=== PATIENT | female | born 1945 | race African-American/Black ===

== ENCOUNTER → 2018-04-11 | Outpatient (CLI) | payer OTHER ==
[~2018-04-11] VITALS: Ht 162.6 cm; Wt 86.6 kg
[~2018-04-11] MED LIST: ADVAIR 100-501 EACH; ALEVE220 M1 PO; ALEVE220 MG PO; ASPIRIN81 M2 PO; B-100 COMPLEX1 EAC1 PO; BIOTIN5 M1 PO; BIOTIN5 MG PO; CALCIUM-MAGNES1 EAC9 PO; CIPRO500 MG PO; FLOMAX0.4 MG PO; FLONASE 0.05%50 MCG; HAIR SKIN NAIL1 EACH PO; MAGOX 400400 MG PO; MULTIVITAMINS1 EAC7; NEXIUM 40 MG CA40 M1 PO; NORCO 5-325 TA1 EACH PO; ONDANSETRON HCL4 M2 PO; PROAIR HFA8.5 GM; RED YEAST RICE600 MG PO; TUMS200 MG PO; VITAMIN A10000 UNI3 PO; VITAMIN B-12100 MC1 PO; VITAMIN B-12500 MCG PO; VITAMIN C500 M1 PO; VITAMIN D-32000 UNIT PO; VITAMIN D1000 UNI1 PO; VITAMINC500 PO
--- NOTE | ~2018-04-11 | P ---
[facility] [place] [address] PROCEDURE REPORT Name: NGUYEN ELLIOTT Room #: [facility] Nadya.#: [id number] Admission: 04/11/18 Attend Phys: Gera Samuels MD Discharge: Date of : 49 Report #: [id number] THIS REPORT FOR: //name// CC: Gera Chavez BRIEF HISTORY: The patient is a 72-year-old woman with a history of colon polyps. PREOPERATIVE DIAGNOSIS: High risk screening colonoscopy due to history of colon polyps. POSTOPERATIVE DIAGNOSIS: Diminutive rectal polyp. MEDICATIONS: Deep sedation with propofol per anesthesia. SPECIMEN: Rectal polyp. ESTIMATED BLOOD LOSS: 3 mL. PROCEDURE: Colonoscopy to the cecum and terminal ileum with biopsy. FINDINGS: Prior to propofol sedation, the procedure of colonoscopy discussed with the patient as well as potential risks and its complications. She indicates she understands and desires to proceed. With the patient in the left lateral decubitus position, digital examination was completed which revealed no abnormalities. Subsequently, [employer] video colonoscope was introduced in the rectum and advanced under direct vision to the cecum. Done with minimal difficulty. The cecum was identified by the ileocecal valve and the appendiceal orifice. I was able to visualize the distal segment of the terminal ileum, which was inspected and noted to be unremarkable. At that point, the scope was withdrawn and careful circumferential views were obtained including retroflexion of the scope in the ascending colon. Upon slow withdrawal of the scope, the prep was excellent. Mucosa was within normal limits, normal vascular pattern and normal light reflex. As we withdrew the scope, no abnormalities were noted throughout the colon. She had a normal endoscopic examination of the colon until the rectum was reached. She had multiple typical appearing hyperplastic polyps. However, one of the small polyps had atypical appearance of may be a small adenoma. It was removed by biopsy. Upon retroflexion, no abnormalities were seen. The scope was withdrawn. The patient tolerated the procedure well. CONDITION OF THE PATIENT UPON DISCHARGE: Following procedure, the patient drowsy, arousable, conversant and will be discharged home when fully ambulatory. [facility] [address] [place] [address] PROCEDURE REPORT Name: NGUYEN ELLIOTT Room #: REG [facility].#: [id number] Admission: 04/11/18 Attend Phys: Gera Samuels MD Discharge: Date of : 49 Report #: [id number] INSTRUCTIONS TO THE PATIENT AND FAMILY AT THE TIME OF DISCHARGE: The patient with history of polyps, one small polyp identified and removed today. If this polyp is an adenoma, I would suggest return in 5 years. If it is hyperplastic, 10 years would be indicated. She will return to the care of Dr. Ruby Meza. Last colonoscopy was about 3-1/2 to 4 years ago. Withdrawal time from the cecum was 10 minutes 50 seconds. <ELECTRONICALLY SIGNED> By: Gera Samuels MD 04/11/18 [id number] Gera Samuels MD /nt
== END | disposition home or self-care (01) ==
LOC: GI 07:18
DX: Z12.11 Encounter for screening for malignant neoplasm of colon (principal); Z86.010 Personal history of colon polyps; K62.1 Rectal polyp; K21.9 Gastro-esophageal reflux disease without esophagitis; Z90.711 Acquired absence of uterus with remaining cervical stump; Z98.890 Other specified postprocedural states; Z88.0 Allergy status to penicillin; Z88.2 Allergy status to sulfonamides; Z88.8 Allergy status to other drugs, medicaments and biological substances; Z79.899 Other long term (current) drug therapy; Z87.442 Personal history of urinary calculi
CPT/HCPCS: 62110; 62900